=== PATIENT | female | born 1990 | race Caucasian/White ===

== ENCOUNTER 2020-11-09 21:01 | Emergency (ER) | payer SELFPAY ==
[~2020-11-09] VITALS: Ht 157.5 cm; Wt 82.0 kg
[2020-11-09] MEDS ORDERED: ONDANSETRON 4MG ODT PO ONE (21:30)
[2020-11-09] MEDS ORDERED: FAMOTIDINE 20MG TABLET PO ONE (21:30)
[2020-11-09] MEDS ORDERED: DEXAMETHASONE 4MG TABLET PO ONE (21:30)
[2020-11-09] MEDS ORDERED: EPIN0.3P3 IM (21:46)
[2020-11-09 21:59] VITALS: BP 120/74
== END 2020-11-09 21:59 | disposition home or self-care (01) ==
LOC: ER 21:01
DX: T78.1XXA Other adverse food reactions, not elsewhere classified, initial encounter (principal); R20.2 Paresthesia of skin; Z91.013 Allergy to seafood; I49.9 Cardiac arrhythmia, unspecified; Y93.G3 Activity, cooking and baking; Y92.89 Other specified places as the place of occurrence of the external cause
CPT/HCPCS: 93005; 99284; J8540; Q0162

== ENCOUNTER 2021-05-01 13:02 | Emergency (ER) | payer BC ==
[~2021-05-01] VITALS: Ht 147.3 cm; Wt 75.0 kg
[~2021-05-01 13:02] MED LIST: EPIN0.3P3 IM
[2021-05-01 13:09] VITALS: BP 116/83
== END 2021-05-01 17:44 | disposition left against medical advice (07) ==
LOC: ER 13:23
DX: Z53.21 Procedure and treatment not carried out due to patient leaving prior to being seen by health care provider (principal); I49.9 Cardiac arrhythmia, unspecified
CPT/HCPCS: 93005